=== PATIENT | female | born 1975 | race Caucasian/White ===

== ENCOUNTER 2022-07-27 11:10 | Outpatient (CLI) | payer OTHER, SELFPAY ==
[2022-07-27 16:13] LABS: Chlamydia DNA Amplified* NOT DETECTED (No Detected); GC DNA Amplified* NOT DETECTED (No Detected)
== END 2022-07-27 11:11 | disposition home or self-care (01) ==
PROVIDERS: PCP Family Medicine; Visit Provider Registered Nurse
DX: Z11.3 Encounter for screening for infections with a predominantly sexual mode of transmission (principal)
CPT/HCPCS: 0353U; 87491; 87591

== ENCOUNTER 2022-09-28 09:59 | Outpatient (CLI) | payer OTHER, SELFPAY ==
--- NOTE | 2022-09-28 10:15 | MM_ITS ---
Patient: SALAS TORREZ Facility:?[facility] Patient ID:?[id number] Site Patient ID:?[id number]. :?[id number] Study:?XRay-Breast 3D W/CAD-09/28/2022 10:30:37 AM Ordering Physician:KARUNA CARRASCO Final Report: BILATERAL SCREENING MAMMOGRAM WITH COMPUTER-AIDED DETECTION AND TOMOSYNTHESIS TECHNIQUE: CC, MLO and Implant displaced views were obtained. These mammographic images have been obtained using full-field digital technique. These mammographic images were interpreted with the benefit of computer-aided detection. Breast Tomosynthesis was used in this interpretation. COMPARISON FILM: 04/07/21, 12/27/18. FINDINGS: There are scattered areas of fibroglandular density IMPRESSION: There is no radiographic evidence for malignancy. ASSESSMENT: BI-RADS Category 2: Benign RECOMMENDATION: Routine screening mammogram in 1 year. A lay language report of this examination will be provided to the patient. Alex Cruz M.D. Diagnostic Radiologist [email or web address]/[email or web address] R& Transcribed: 7:07 p.m. VINITA/Dictated by: Alex Cruz MD @ 09/28/2022 11:17:00 AM Signed by:?Alex Cruz MD @09/29/2022 5:52:28 AM (Electronic Signature)
== END 2022-09-28 10:00 | disposition home or self-care (01) ==
LOC: MAMMO 09:59
PROVIDERS: PCP Family Medicine; Visit Provider Registered Nurse
DX: Z12.31 Encounter for screening mammogram for malignant neoplasm of breast (principal)
CPT/HCPCS: 77063; 77067

== ENCOUNTER 2023-02-21 09:48 | Outpatient (CLI) | payer OTHER, SELFPAY ==
[2023-02-21 14:21] LABS: Chlamydia DNA Amplified* NOT DETECTED (No Detected); GC DNA Amplified* NOT DETECTED (No Detected)
== END 2023-02-21 09:49 | disposition home or self-care (01) ==
LOC: NFLDREF 09:48
PROVIDERS: PCP Family Medicine; Visit Provider Registered Nurse
DX: N89.8 Other specified noninflammatory disorders of vagina (principal); Z11.3 Encounter for screening for infections with a predominantly sexual mode of transmission
CPT/HCPCS: 87491; 87591